=== PATIENT | male | born 1990 | race Caucasian/White ===

== ENCOUNTER 2020-12-23 12:30 | Inpatient (IN) | payer BC ==
[~2020-12-23] VITALS: Ht 175.3 cm; Wt 71.7 kg
[~2020-12-23 12:30] MED LIST: BENTYL 10MG CAP10 MG PO; ZOFRAN4 MG PO
[2020-12-23 13:07] LABS: HEMOGLOBIN 15.4 gm/dl (14.0-17.5); RED BLOOD COUNT 4.77 M/UL (4.20-5.50); WHITE BLOOD COUNT 14.1 K/UL (4.5-11.0)
[2020-12-23 13:30] LABS: BUN/CREATININE RATIO 10 (0-10)
[2020-12-24 05:23] LABS: HEMOGLOBIN 14.5 gm/dl (14.0-17.5)
[2020-12-24 05:27] LABS: RED BLOOD COUNT 4.26 M/UL (4.20-5.50); WHITE BLOOD COUNT 10.4 K/UL (4.5-11.0)
[2020-12-24 05:42] LABS: BUN/CREATININE RATIO 12 (0-10)
--- NOTE | 2020-12-24 13:58 | NUR ---
PATIENT LEFT FLOOR PER TRANSPORT. BRUCE
== END 2020-12-24 11:58 | disposition home or self-care (01) | DRG 287 ==
LOC: ER1 12:30 → CDU 16:44 → PROG CARE 12-24 04:00
PROVIDERS: ADMIT Internal Medicine
PROC: 4A023N7 Measurement of Cardiac Sampling and Pressure, Left Heart, Percutaneous Approach (ICD-10-PCS; principal; 2020-12-23)
PROC: B2111ZZ Fluoroscopy of Multiple Coronary Arteries using Low Osmolar Contrast (ICD-10-PCS; 2020-12-23)
PROC: B24BZZ4 Ultrasonography of Heart with Aorta, Transesophageal (ICD-10-PCS; 2020-12-23)
DX: R07.89 Other chest pain (principal); R79.89 Other specified abnormal findings of blood chemistry; Z20.822 Contact with and (suspected) exposure to COVID-19; I45.10 Unspecified right bundle-branch block; Z79.82 Long term (current) use of aspirin
CPT/HCPCS: ECHO; 0240U; 36415; 71045; 80048; 80053; 82550; 82553; 83874; 84484; 85025; 85610; 85730; 93005; 93306; 99152; 99153; 99284; C1769; C1887; J1644; J2250; J3010; J7040; Q9967